=== PATIENT | female | born 1950 | race Caucasian/White ===

== ENCOUNTER 2017-04-11 06:57 | Day surgery (SDC) | payer MEDICARE, BC ==
[2017-04-11] MEDS ORDERED: LIDOCAINE 2% MDV (20MG/ML) 20ML VIAL IV ONE ×2 (13:19→15:07)
[2017-04-11] MEDS ORDERED: EPINEPHRINE 1 MG/ML AMPUL SQ ONE (13:19)
[2017-04-11] MEDS ORDERED: TETRACAINE HCL 0.5% 15 ML OPTH BTL OPTH ONE (13:19)
[2017-04-11] MEDS ORDERED: NEOMYCIN/POLY./DEXAM OPTH OINT OPTH ONE (13:19)
--- NOTE | 2017-04-11 14:59 | OP NOTE CHAMES ---
DATE OF PROCEDURE: 04/11/17 PREOPERATIVE DIAGNOSIS: Nuclear sclerotic cataract, left eye. POSTOPERATIVE DIAGNOSIS: Nuclear sclerotic cataract, left eye. OPERATION: Phacoemulsification of cataractous lens with implantation of intraocular lens. LENS IMPLANT USED: Kincaid Model PCB00 + 24.0 diopters. COMPLICATIONS: None. PROCEDURE IN DETAIL: Following a retrobulbar and facial block, the patient was prepped and draped in the usual fashion for eye surgery. A lid speculum was placed in the left eye after which a 2.4 mm tunnel wound was placed at the temporal limbus and dissected into clear cornea. A paracentesis was placed at 2 oclock hours to the left and right of the initial incision and the chamber deepened with Viscoelastic. The keratome was then used to enter the anterior chamber after which the continuous circular capsulorrhexis was accomplished without difficulty using a bent needle and a Utrata forceps. Hydrodissection and hydrodelineation of the lens was performed after which the nucleus of the lens was removed using the Phaco handpiece in the [id number] technique. The residual cortical material was irrigated and aspirated from the eye after which the bag and chamber were re-examined. The bag was re-inflated with Viscoelastic and the intraocular lens injected into the capsular bag where it centered well. The Viscoelastic was then copiously irrigated and aspirated from the eye after which the temporal tunnel wound and paracentesis were hydrated and the wounds were examined. They were noted to be watertight. The lid speculum was removed from the eye and the eye patched and shielded. The patient was transferred to the recovery room in satisfactory condition and given an appointment to be reexamined in the clinic later today or as directed by Dr. Gomez. Luisito Gomez M.D. Date & Time JOB NUMBER: [id number] MTDD
[2017-04-11] MEDS ORDERED: PROPOFOL 10 MG/ML VIAL IV ONE (15:07)
== END 2017-04-11 09:35 | disposition home or self-care (01) ==
LOC: SUR 06:57
PROVIDERS: ATTEND Ophthalmology
DX: H25.12 Age-related nuclear cataract, left eye (principal); E11.9 Type 2 diabetes mellitus without complications; Z79.4 Long term (current) use of insulin; Z79.84 Long term (current) use of oral hypoglycemic drugs; E03.9 Hypothyroidism, unspecified; Z79.01 Long term (current) use of anticoagulants; E78.00 Pure hypercholesterolemia, unspecified; Z95.1 Presence of aortocoronary bypass graft
CPT/HCPCS: J0171

== ENCOUNTER 2017-04-18 09:16 | Day surgery (SDC) | payer MEDICARE, BC ==
[2017-04-18] MEDS ORDERED: DICLOFENAC SODIUM 2.5 ML DROPS OPTH ONE (15:37)
[2017-04-18] MEDS ORDERED: EPINEPHRINE 1 MG/ML AMPUL SQ ONE (15:37)
[2017-04-18] MEDS ORDERED: TOBRAMYCIN 0.3% OPTH DROP 5 ML BTL OPTH ONE (15:37)
[2017-04-18] MEDS ORDERED: TETRACAINE HCL 0.5% 15 ML OPTH BTL OPTH ONE (15:37)
[2017-04-18] MEDS ORDERED: PROPOFOL 10 MG/ML VIAL IV ONE (15:37)
[2017-04-18] MEDS ORDERED: LIDOCAINE 1% MPF 100MG/10ML STERILE-PAK AMPULE IV ONE (15:37)
[2017-04-18] MEDS ORDERED: PREDNISOLONE ACETATE 1% OPTH 10ML BOTTLE OPTH ONE (15:37)
[2017-04-18] MEDS ORDERED: TETRACAINE HCL 0.5% OPTH 2ML SOLU OPTH ONE (15:37)
[2017-04-18] MEDS ORDERED: NEOMYCIN/POLY./DEXAM OPTH OINT OPTH ONE (15:37)
[2017-04-18] MEDS ORDERED: LIDOCAINE 2% MDV (20MG/ML) 20ML VIAL IV ONE ×2 (15:37)
--- NOTE | 2017-04-19 10:05 | OP NOTE CHAMES ---
DATE OF PROCEDURE: 04/18/17 PREOPERATIVE DIAGNOSIS: Nuclear sclerotic cataract, right eye. POSTOPERATIVE DIAGNOSIS: Nuclear sclerotic cataract, right eye. OPERATION: Phacoemulsification of cataractous lens with implantation of intraocular lens. LENS IMPLANT USED: Model PCB00 + 26.0 diopters. COMPLICATIONS: None. PROCEDURE IN DETAIL: Following a retrobulbar and facial block, the patient was prepped and draped in the usual fashion for eye surgery. A lid speculum was placed in the right eye after which a 2.4 mm tunnel wound was placed at the temporal limbus and dissected into clear cornea. A paracentesis was placed at 2 oclock hours to the left and right of the initial incision and the chamber deepened with Viscoelastic. The keratome was then used to enter the anterior chamber after which the continuous circular capsulorrhexis was accomplished without difficulty using a bent needle and a Utrata forceps. Hydrodissection and hydrodelineation of the lens was performed after which the nucleus of the lens was removed using the Phaco handpiece in the [id number] technique. The residual cortical material was irrigated and aspirated from the eye after which the bag and chamber were re-examined. The bag was re-inflated with Viscoelastic and the intraocular lens injected into the capsular bag where it centered well. The Viscoelastic was then copiously irrigated and aspirated from the eye after which the temporal tunnel wound and paracentesis were hydrated and the wounds were examined. They were noted to be watertight. The lid speculum was removed from the eye and the eye patched and shielded. The patient was transferred to the recovery room in satisfactory condition and given an appointment to be reexamined in the clinic later today or as directed by Dr. Gomez. Luisito Gomez M.D. Date & Time JOB NUMBER: [id number] MTDD
== END 2017-04-18 11:50 | disposition home or self-care (01) ==
LOC: SUR 09:16
PROVIDERS: ATTEND Ophthalmology
DX: H25.11 Age-related nuclear cataract, right eye (principal); E11.9 Type 2 diabetes mellitus without complications; Z79.4 Long term (current) use of insulin; Z79.84 Long term (current) use of oral hypoglycemic drugs; E03.9 Hypothyroidism, unspecified; E78.00 Pure hypercholesterolemia, unspecified
CPT/HCPCS: J0171; J3490

== ENCOUNTER 2017-06-21 23:03 | Emergency (ER) | payer MEDICARE, BC ==
[2017-06-21] MEDS ORDERED: 0.9 % SODIUM CHLORIDE 1,000 ML BAG IV ONE (23:08)
--- NOTE | 2017-06-21 23:16 | Emergency Department Record ---
History of Present Illness - General Stated Complaint: FALL Time Seen by Provider: 06/21/17 23:08 Source: Patient Mode of Arrival: Ambulatory Limitations: No limitations - History of Present Illness Initial Comments: 67 yo female presents after a fall. She was walking and tripped on a loose cord. She injured her right side and back, left elbow, and right foot. She is on Xarelto. She states she did hit her head but has no pain, no contusion, no swelling. Her pain is mostly on the right flank, back, and R CVA area. She landed on the ground. No LOC. She ambulated to the ED. No dizziness. No symptoms prior to the fall. No headache. MD Complaint: Fall -: Hour(s) (1) Fall From: Standing When Fall Occurred: 1 hour [employer] Fall Witnessed: No Place Fall Occurred: Home Loss of Consciousness: None Prolonged Down Time?: No Symptoms Prior to Fall: None Location: Head, Back, Abdomen, Other Location - Extremities: Left: Elbow, Right: Foot Severity: Moderate Quality: Aching Associated Symptoms: Denies - Mora Coma Scale Eye Response: (4) Open spontaneously Motor Response: (6) Obeys commands Verbal Response: (5) Oriented Mora Total: 15 - Related Data Home Medications Medication Instructions Recorded Confirmed Last Taken Levothyroxine Sodium [Synthroid] 75 mcg PO QAM 06/22/17 06/22/17 06/21/17 Allergies Allergy/AdvReac Type Severity Reaction Status Date / Time cortisone [Cortisone] Allergy SWELLING Verified 06/17/14 22:28 (GENERAL) Penicillins Allergy SHORTNESS Verified 06/17/14 22:28 OF BREATH Review of Systems Constitutional: Denies: Chills, Fever, Malaise, Weakness Eyes: Denies: Eye discharge ENT: Denies: Congestion, Throat pain Respiratory: Denies: Cough, Dyspnea, Hemoptysis, Stridor, Wheezes Cardiovascular: Reports: As per HPI, Chest pain. Denies: Palpitations, Syncope Endocrine: Denies: Fatigue Gastrointestinal: Reports: As per HPI, Abdominal pain. Denies: Diarrhea, Nausea , Vomiting Genitourinary: Denies: Dysuria, Urgency Musculoskeletal: Reports: As per HPI, Back pain, Myalgia. Denies: Neck pain Skin: Denies: Bruising, Change in color, Rash Neurological: Denies: Abnormal gait, Confusion, Headache, Numbness, Tingling, Tremors, Vertigo, Weakness Psychiatric: Denies: Anxiety Hematological/Lymphatic: Denies: Blood Clots, Easy bleeding, Easy bruising, Swollen glands Past Medical History - SOCIAL HISTORY Smoking Status: Never smoker - RESPIRATORY Hx Respiratory Disorders: Yes Hx Bronchitis: Yes Hx Pneumonia: Yes Hx Sleep Apnea: Yes Hx of CPAP: No (cannot use it; claustrophobic) - CARDIOVASCULAR Hx Cardio Disorders: Yes Hx Abnormal EKG: Yes Hx Cardiac Cath: Yes Hx Chest Pain: Yes Hx CHF: Yes (? uses diuretic) Hx Edema: Yes Hx Hypertension: Yes Hx Irregular Heartbeat: Yes (afib) Hx Coronary Artery Bypass Graft: Yes Hx Coronary Stent: Yes (3) Comment:: cardia stents; bypass; high cholesterol - NEURO Hx Neuro Disorders: No Hx Dizziness: Yes (while laying down) - GI Hx GI Disorders: Yes Hx Diverticulitis: Yes Hx Reflux: Yes Hx Irritable Bowel: Yes - Hx Genitourinary Disorders: Yes Hx Renal Disease: Yes (sees dr for kidneys;) - ENDOCRINE Hx Endocrine Disorders: Yes Hx Diabetes: Yes - MUSCULOSKELETAL Hx Musculoskeletal Disorders: Yes Hx Arthritis: Yes Hx Fibromyalgia: Yes - PSYCH Hx Psych Problems: Yes Hx Anxiety: Yes Hx Depression: Yes - HEMATOLOGY/ONCOLOGY Hx Hematology/Oncology Disorders: Yes Hx Bruising: Yes (on blood thinnner) Hx Cancer: Yes (skin cancer) Hx Chemotherapy: No Hx Radiation Therapy: No Family Medical History Hx Cancer: Father Hx Diabetes: Mother Hx Heart Disease: Father, Mother Hx HTN: Father, Mother Hx Resp Disorders: Father Hx Stroke: Mother Physical Exam - General General Appearance: Alert, Oriented x3, Cooperative, No acute distress Limitations: No limitations - Head Head exam: Atraumatic, Normocephalic, Normal inspection Head exam detail: Other (No tenderness to palpation, no visible signs of injury , no abrasions). negative: Abrasion, Contusion, General tenderness, Hematoma, Tenderness of temporal artery - Eye Eye exam: Normal appearance, PERRL, EOMI. negative: Conjunctival injection, Periorbital swelling, Scleral icterus - ENT ENT exam: Normal exam. negative: Mucous membranes moist Ear exam: Normal external inspection Nasal Exam: Normal inspection Mouth exam: Normal external inspection - Neck Neck exam: Normal inspection, Full ROM. negative: Tenderness - Respiratory Respiratory exam: Normal lung sounds bilaterally. negative: Respiratory distress - Cardiovascular Cardiovascular Exam: Regular rate, Normal rhythm, Normal heart sounds Peripheral Pulses: 2+: Radial (R), Radial (L) - GI/Abdominal GI/Abdominal exam: Soft, Tenderness (right lateral abdomen) - Rectal Rectal exam: Deferred - exam: Deferred - Extremities Extremities exam: Normal inspection, Full ROM, Normal capillary refill, Tenderness. negative: Joint swelling Image of Full Body: 1 - tenderness to the elbow, no bruising, full ROM 2 - tenderness to the right posterior ribs and right CVA area 3 - mid weigh box tender, normal inspection, no swelling or bruising - Back Back exam: Reports: CVA tenderness (R), Muscle spasm, Paraspinal tenderness, Tenderness, Vertebral tenderness - Neurological Neurological exam: Alert, Normal gait, Oriented X3 - Psychiatric Psychiatric exam: Normal affect, Normal mood - Skin Skin exam: Dry, Intact, Normal color, Warm Course - Reevaluation(s) Reevaluation #1: 06/21/17 23:44 CBC reviewed No acute changes CR is 1.3 with GFR of 43. Cut off is 45 for IV contrast for [facility] CT will be NC initially. Reevaluation #2: Prelim XR of the foot and elbow are negative for acute fracture or dislocation. 06/22/17 00:22 [facility] HCT is negative for acute process 06/22/17 00:[address] [facility] No fracture or dislocation 06/22/17 00:[address] scan No acute fractures. Bilateral patchy ground glass changes. L greater than R. Chronic changes, vs acute infectious, vs contusion. [facility] CT of the ABDOMEN No acute injury or pathology 06/22/17 00:39 Reevaluation #3: The patient is 97% on room air. 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 with some chronic underlying lung disease that may be what is represented on the CT She does not have any current respiratory symptoms She is comfortable with DC 06/22/17 01:14 Medical Decision Making - Lab Data Result diagrams: 06/21/17 23:15 06/21/17 23:15 Disposition Disposition: Discharge Clinical Impression: Contusion of elbow, left Qualifiers: Encounter type: initial encounter Qualified Code(s): S50.02XA - Contusion of left elbow, initial encounter Contusion of foot, right Qualifiers: Encounter type: initial encounter Qualified Code(s): S90.31XA - Contusion of right foot, initial encounter Contusion of rib on left side Qualifiers: Encounter type: initial encounter Qualified Code(s): S20.212A - Contusion of left front wall of thorax, initial encounter Condition: (1) Good Instructions: Rib Contusion (ED) Additional Instructions: Return to the ER if you have any uncontrolled pain, cough, short of breath, new pain or new concerns. Follow up with your doctor first of the week for a recheck and to review all of your final reports Time of Disposition: 01:16 Quality - Quality Measures Quality Measures: N/A - Blood Pressure Screening Does Patient Have Any of the Following: No Blood Pressure Classification: Pre-Hypertensive BP Reading Systolic Measurement: 164 Diastolic Measurement: 86 Screening for High Blood Pressure: < Pre-Hypertensive BP, F/U Documented > [ G8950] Pre-Hypertensive Follow-up Interventions: Referral to alternative/primary care provider.
[2017-06-21] MEDS ORDERED: ACETAMINOPHEN 1,000 MG/100 ML BTL IVPB ONE (23:22)
[2017-06-21] MEDS ORDERED: FENTANYL PF 100MCG/2ML VIAL IVP ONE (23:22)
[2017-06-21 23:27] LABS: BASO % 0.5 % (0-6); EOS % 4.7 % (0-6); GRAN % 58.4 % (47-80); HEMATOCRIT 40.2 % (35.0-47.0); HEMOGLOBIN 13.5 gm/dl (11.6-16.0); LYMPH % 27.9 % (16-45); MEAN CELL VOLUME 82.4 fl (81-97); MEAN CORPUSCULAR HEMOGLOBIN 27.7 pg (27-33); MEAN CORPUSCULAR HGB CONC 33.6 g/dl (32-36); MEAN PLATELET VOLUME 10.6 fl (7.4-10.4); MONO % 8.5 % (0-9); PLATELET COUNT 276 K/uL (130-400); RED BLOOD COUNT 4.88 M/uL (3.80-5.40); RED CELL DISTRIBUTION WIDTH 13.1 % (11.5-14.5); WHITE BLOOD COUNT W/O DIFF 10.4 K/uL (4.2-12.2)
[2017-06-21 23:35] LABS: CREATININE 1.3 mg/dL (0.52-1.04)
[2017-06-21 23:37] LABS: PARTIAL THROMBOPLASTIN TIME 25.2 SECONDS (24.5-39.1); PROTHROMBIN TIME (PATIENT) 10.8 SECONDS (9.5-12.1)
[2017-06-21 23:42] LABS: ALCOHOL 0.01 g/dL (0-0.010)
--- NOTE | 2017-06-22 22:18 | RADIOLOGY REPORT ---
EXAM: ELBOW, LEFT 3 VIEWS HISTORY: FALL, LEFT ELBOW INJURY AND PAIN. TECHNIQUE: Three-view left elbow. COMPARISON: None. ENCOUNTER: Initial. FINDINGS: No acute fracture or joint effusion. Mild arthritic change of the ulnotrochlear joint with small osteophytes. Mild enthesophyte formation medial epicondyle. IMPRESSION: NEGATIVE FOR ACUTE FRACTURE OR JOINT EFFUSION OF THE LEFT ELBOW. JOB [facility]BER: [id number] [facility]
--- NOTE | 2017-06-22 22:25 | CT SCAN REPORT ---
EXAM: CT SCAN CHEST WO CONTRAST HISTORY: ACUTE RIGHT CHEST PAIN, FALL, INJURY. COMPARISON: Chest x-ray 06/14/96. ENCOUNTER: Initial. TECHNIQUE: Contiguous axial images from the thoracic inlet to the upper abdomen were obtained without IV contrast. FINDINGS: Mild patchy ground-glass density in the peripheral, left greater than right, lower lobe as well as minimally within the lingula. No pneumothorax. No pleural effusion. Central airways are patent. The heart is not enlarged and there is no pericardial effusion. Moderate coronary artery calcification. Calcified mediastinal lymph nodes. No enlarged lymph nodes in the thorax. Upper abdomen is unremarkable. No fractures identified. IMPRESSION: 1. NO ACUTE INTRATHORACIC PROCESS. 2. GROUND-GLASS DENSITIES IN THE LEFT LOWER LOBE GREATER THAN RIGHT LOWER LOBE CONSISTENT WITH NONSPECIFIC PNEUMONITIS. 3. OLD GRANULOMATOUS DISEASE. JOB NUMBER: [id number] MTDD
--- NOTE | 2017-06-23 20:41 | RADIOLOGY REPORT ---
EXAM: FOOT, RIGHT 3 VIEWS HISTORY: FALL, RIGHT FOOT INJURY, PAIN RIGHT SECOND DIGIT. TECHNIQUE: Three-view right foot. COMPARISON: None. ENCOUNTER: Initial. FINDINGS: No acute fracture or dislocation. Mild osteoarthritic change of the first MTP. No hallux valgus. Extensive right calcaneal enthesopathy. IMPRESSION: 1. NEGATIVE FOR ACUTE FRACTURE OF THE RIGHT FOOT. 2. MILD OSTEOARTHRITIC CHANGE OF THE RIGHT FIRST MTP. 3. EXTENSIVE RIGHT CALCANEAL ENTHESOPATHY. JOB NUMBER: [id number] [facility]
--- NOTE | 2017-06-23 20:46 | CT SCAN REPORT ---
EXAM: CT SCAN HEAD WO CONTRAST HISTORY: ACUTE GENERALIZED HEADACHE, FALL. NO LOSS OF CONSCIOUSNESS. COMPARISON: None. ENCOUNTER: Initial. HAND DOMINANCE: Unknown. TECHNIQUE: Contiguous axial images from the cerebral convexities to the foramen magnum were obtained without contrast. FINDINGS: Moderate generalized atrophy of the brain. No acute intracranial hemorrhage, mass effect, or midline shift. Moderate decreased attenuation in the subcortical and periventricular white matter of the cerebral hemispheres. No CT evidence of acute infarct. Ventricles, basal cisterns, and sulci are within normal limits. Osseous structures are unremarkable. Bilateral lens implants. Paranasal sinuses are unremarkable. IMPRESSION: 1. NO ACUTE INTRACRANIAL PROCESS. 2. MODERATE GENERALIZED ATROPHY OF THE BRAIN WITH MODERATE CHRONIC SMALL VESSEL ISCHEMIC CHANGE. JOB NUMBER: [id number] MTDD
--- NOTE | 2017-06-23 20:56 | CT SCAN REPORT ---
EXAM: CT SCAN CERVICAL SPINE WO CONTRAST HISTORY: FALL, TRAUMA, NECK PAIN. COMPARISON: None. TECHNIQUE: Contiguous axial images from the skull base to the T-2 level were obtained without contrast. Sagittal and coronal two-dimensional reformatted images were obtained for better anatomic delineation. FINDINGS: Moderate reversal of normal cervical lordosis. The C1-C2 articulation is intact. Extensive hypertrophic change between the anterior arch of C1 and the odontoid. No acute fracture or subluxation elsewhere. Moderate to advanced disc disease at the C6-7 level with disc space narrowing and endplate osteophytes. Mild disc disease of remaining levels. Probable mild central canal stenosis due to degenerative change at C6-7. Facet arthropathy in the cervical spine, most pronounced at C4-5 on the left, where there is moderate to severe left neural foraminal stenosis. Soft tissues of the cervical region demonstrate moderate calcification of the carotid bulbs. The lung apices are clear. IMPRESSION: 1. MULTILEVEL DEGENERATIVE CHANGE OF THE CERVICAL SPINE WITH NO ACUTE FRACTURE OR SUBLUXATION. 2. MULTILEVEL DEGENERATIVE DISC DISEASE, MOST PRONOUNCED AT C6-7. 3. FACET ARTHROPATHY, MOST PRONOUNCED AT C4-5 ON THE LEFT WITH MODERATE TO SEVERE LEFT NEURAL FORAMINAL STENOSIS AT THIS LEVEL. JOB NUMBER: [id number] MTDD
--- NOTE | 2017-06-23 21:02 | CT SCAN REPORT ---
EXAM: CT SCAN ABDOMEN/PELVIS WO CONTRAST HISTORY: FALL, LUMBAR TRAUMA, BACK PAIN. COMPARISON: None. TECHNIQUE: Contiguous axial images from the lung bases through the symphysis pubis were obtained without IV contrast. FINDINGS: Mild bibasilar ground-glass opacity. The liver, spleen, kidneys, adrenals, and pancreas are unremarkable. The gallbladder is absent. Visualized loops of small and large bowel are of normal caliber with no bowel wall thickening or adjacent fluid. There is minimal calcification of the abdominal aorta without aneurysm. No free intraperitoneal fluid or adenopathy. Midline incisional scar. The uterus is absent. Increased attenuation subcutaneous fat of the lower lumbar region. No fractures. No lytic or blastic lesion. IMPRESSION: 1. NO ACUTE PROCESS OF THE ABDOMEN OR PELVIS. 2. INCREASED ATTENUATION SUBCUTANEOUS FAT OF THE LOWER LUMBAR REGION CONSISTENT WITH CONTUSION. NO FRACTURE. JOB NUMBER: [id number] MTDD
== END 2017-06-22 01:34 | disposition home or self-care (01) ==
LOC: ER 23:03
DX: S50.02XA Contusion of left elbow, initial encounter (principal); S90.31XA Contusion of right foot, initial encounter; S20.212A Contusion of left front wall of thorax, initial encounter; M54.2 Cervicalgia; R51 Headache; I48.91 Unspecified atrial fibrillation; E11.9 Type 2 diabetes mellitus without complications; I10 Essential (primary) hypertension; Z79.01 Long term (current) use of anticoagulants; W01.0XXA Fall on same level from slipping, tripping and stumbling without subsequent striking against object, initial encounter; Y92.009 Unspecified place in unspecified non-institutional (private) residence as the place of occurrence of the external cause
CPT/HCPCS: 99284 ×2; 96374; 96375; 85025; 85730; 85610; 80048; 73080; 73630; 72125; 71250; 70450; 74176; G0480; J3010; 80320; J7030

== ENCOUNTER 2017-09-20 11:07 | Emergency (ER) | payer MEDICARE, BC ==
--- NOTE | 2017-09-20 11:32 | Emergency Department Record ---
History of Present Illness - General Chief Complaint: Suture removal Stated Complaint: SUTURE REMOVAL Time Seen by Provider: 09/20/17 11:28 Source: Patient Mode of arrival: Ambulatory Limitations: No limitations - History of Present Illness Initial Comments: 67 yo female presents for suture removal. She has a left eyebrow laceration that has been healing without any concerns by the patient. The bruising and swelling are resolving. NO vision changes. No redness or pus. MD Complaint: Suture/staple removal, Wound re-check Onset/Timin -: Days(s) Initial Visit For: Laceration Returns Today for: Staple/stitch removal Symptoms Since Prior Visit: No new symptoms Associated Symptoms: None - Related Data Allergies Allergy/AdvReac Type Severity Reaction Status Date / Time cortisone [Cortisone] Allergy SWELLING Verified 09/20/17 11:15 (GENERAL) Penicillins Allergy SHORTNESS Verified 09/20/17 11:15 OF BREATH Travel Screening - Travel/Exposure Within Last 30 Days Have you traveled within the last 30 days?: No Review of Systems Constitutional: Denies: Chills, Fever Eyes: Denies: Eye discharge, Eye pain, Photophobia, Vision change ENT: Denies: Congestion, Throat pain Respiratory: Denies: Cough Cardiovascular: Denies: Chest pain, Syncope Endocrine: Denies: Fatigue Gastrointestinal: Denies: Nausea, Vomiting Genitourinary: Denies: Dysuria Musculoskeletal: Denies: Arthralgia, Back pain, Myalgia Neurological: Denies: Headache, Numbness, Vertigo, Weakness Psychiatric: Denies: Anxiety Hematological/Lymphatic: Denies: Blood Clots, Easy bleeding, Easy bruising Past Medical History - SOCIAL HISTORY Smoking Status: Never smoker Alcohol Use: None Drug Use: None - RESPIRATORY Hx Respiratory Disorders: Yes Hx Bronchitis: Yes Hx Pneumonia: Yes Hx Sleep Apnea: Yes Hx of CPAP: No (cannot use it; claustrophobic) - CARDIOVASCULAR Hx Cardio Disorders: Yes Hx Abnormal EKG: Yes Hx Cardiac Cath: Yes Hx Chest Pain: Yes Hx CHF: Yes (? uses diuretic) Hx Edema: Yes Hx Hypertension: Yes Hx Irregular Heartbeat: Yes (afib) Hx Coronary Artery Bypass Graft: Yes Hx Coronary Stent: Yes (3) Comment:: cardia stents; bypass; high cholesterol - NEURO Hx Neuro Disorders: No Hx Dizziness: Yes (while laying down) - GI Hx GI Disorders: Yes Hx Diverticulitis: Yes Hx Reflux: Yes Hx Irritable Bowel: Yes - Hx Genitourinary Disorders: Yes Hx Renal Disease: Yes (sees dr for kidneys;) - ENDOCRINE Hx Endocrine Disorders: Yes Hx Diabetes: Yes - MUSCULOSKELETAL Hx Musculoskeletal Disorders: Yes Hx Arthritis: Yes Hx Fibromyalgia: Yes - PSYCH Hx Psych Problems: Yes Hx Anxiety: Yes Hx Depression: Yes - HEMATOLOGY/ONCOLOGY Hx Hematology/Oncology Disorders: Yes Hx Bruising: Yes (on blood thinnner) Hx Cancer: Yes (skin cancer) Hx Chemotherapy: No Hx Radiation Therapy: No Family Medical History Any Significant Family History?: Yes Hx Cancer: Father Hx Diabetes: Mother Hx Heart Disease: Father, Mother Hx HTN: Father, Mother Hx Resp Disorders: Father Hx Stroke: Mother Physical Exam - General General Appearance: Alert, Oriented x3, Cooperative, No acute distress Limitations: No limitations - Head Head exam: negative: Atraumatic Head exam detail: Laceration (Healing eyebrow laceration, mild scabbing, intact wound) - Eye Eye exam: Normal appearance - ENT ENT exam: Normal exam Ear exam: Normal external inspection Nasal Exam: Normal inspection Mouth exam: Normal external inspection Teeth exam: Normal inspection - Neck Neck exam: Normal inspection, Full ROM. negative: Tenderness - Rectal Rectal exam: Deferred - exam: Deferred - Extremities Extremities exam: Other (left hand abrasion) - Back Back exam: Reports: Full ROM - Neurological Neurological exam: Alert, Oriented X3 - Psychiatric Psychiatric exam: Normal affect, Normal mood - Skin Skin exam: Other (healing laceration) Course Vital Signs 09/20/17 11:16 Temperature 98.4 F Pulse Rate 52 L Respiratory 18 Rate Blood Pressure 150/68 Pulse Ox 98 - Reevaluation(s) Reevaluation #1: 09/20/17 11:30 Sutures removed without difficulty Steri Strips placed 09/20/17 11:31 The HCT from initial visit was negative Disposition Disposition: Discharge Clinical Impression: Visit for suture removal Disposition: Home, Self-Care Condition: (1) Good Instructions: Stitches Removal (ED) Additional Instructions: Return to the ER if you have any ongoing concerns about the healing of your laceration Forms: Patient Portal Access Time of Disposition: 11:32 Quality - Quality Measures Quality Measures: N/A - Blood Pressure Screening Does Patient Have Any of the Following: No Blood Pressure Classification: Hypertensive Reading Systolic Measurement: 150 Diastolic Measurement: 68 Screening for High Blood Pressure: < Pre-Hypertensive BP, F/U Documented > [ G8950] Pre-Hypertensive Follow-up Interventions: Referral to alternative/primary care provider.
== END 2017-09-20 11:40 | disposition home or self-care (01) ==
LOC: ER 11:07
DX: Z48.02 Encounter for removal of sutures (principal)

== ENCOUNTER 2018-01-12 14:35 | Emergency (ER) | payer MEDICARE, BC ==
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
--- NOTE | 2018-01-12 15:39 | Emergency Department Record ---
History of Present Illness - General Chief complaint: Extremity Problem Stated complaint: RT ELBOW AND SHOULDER PAIN Time Seen by Provider: 01/12/18 15:22 Source: Patient Mode of Arrival: Ambulatory - History of Present Illness Onset/Timin -: Week(s) Location: Right, Arm, Elbow History of Same: No Severity scale (1-10): 9 Quality: Aching, Sharp Consistency: Constant Improves with: Nothing Worsens with: Exertion Associated Symptoms: Denies other symptoms - Related Data Home Medications Medication Instructions Recorded Confirmed Last Taken Baclofen [Baclofen] 10 mg PO QHS 01/12/18 01/12/18 01/12/18 Previous Rx's Medication Instructions Recorded Prednisone [Prednisone 10Mg] 10 mg PO ASDIR #30 tab 01/12/18 Prednisone [Prednisone 10Mg] 10 mg PO ASDIR #30 tab 01/12/18 Allergies Allergy/AdvReac Type Severity Reaction Status Date / Time cortisone [Cortisone] Allergy SWELLING Verified 01/12/18 14:47 (GENERAL) Penicillins Allergy SHORTNESS Verified 01/12/18 14:47 OF BREATH Travel Screening - Travel/Exposure Within Last 30 Days Have you traveled within the last 30 days?: No - Travel/Exposure Within Last Year Have you traveled outside the [place] in the last year?: No - Additonal Travel Details Have you been exposed to anyone with a communicable illness?: No - Travel Symptoms Symptom Screening: None Review of Systems Constitutional: Reports: As per HPI. Denies: Chills, Fever, Malaise, Night sweats, Weakness, Weight change Eyes: Reports: As per HPI. Denies: Eye discharge, Eye pain, Photophobia, Vision change ENT: Reports: As per HPI. Denies: Congestion, Dental pain, Ear pain, Epistaxis , Hearing loss, Throat pain Respiratory: Reports: As per HPI. Denies: Cough, Dyspnea, Hemoptysis, Stridor, Wheezes Cardiovascular: Reports: As per HPI. Denies: Arrhythmia, Chest pain, Dyspnea on exertion, Edema, Murmurs, Orthopnea, Palpitations, Paroxysmal nocturnal dyspnea, Rheumatic Fever, Syncope Endocrine: Reports: As per HPI. Denies: Fatigue, Heat or cold intolerance, Polydipsia, Polyuria Gastrointestinal: Reports: As per HPI. Denies: Abdominal pain, Constipation, Diarrhea, Hematemesis, Hematochezia, Melena, Nausea, Vomiting Genitourinary: Reports: As per HPI. Denies: Abnormal menses, Discharge, Dyspareunia, Dysuria, Frequency, Hematuria, Incontinence, Retention, Urgency Musculoskeletal: Reports: As per HPI. Denies: Arthralgia, Back pain, Gout, Joint swelling, Myalgia, Neck pain Skin: Reports: As per HPI. Denies: Bruising, Change in color, Change in hair/ nails, Lesions, Pruritus, Rash Neurological: Reports: As per HPI. Denies: Abnormal gait, Confusion, Headache, Numbness, Paresthesias, Seizure, Tingling, Tremors, Vertigo, Weakness Psychiatric: Reports: As per HPI. Denies: Anxiety, Auditory hallucinations, Depression, Homicidal thoughts, Suicidal thoughts, Visual hallucinations Hematological/Lymphatic: Reports: As per HPI. Denies: Anemia, Blood Clots, Easy bleeding, Easy bruising, Swollen glands Past Medical History - SOCIAL HISTORY Smoking Status: Never smoker Alcohol Use: None Drug Use: None - RESPIRATORY Hx Respiratory Disorders: Yes Hx Bronchitis: Yes Hx Pneumonia: Yes Hx Sleep Apnea: Yes Hx of CPAP: No (cannot use it; claustrophobic) - CARDIOVASCULAR Hx Cardio Disorders: Yes Hx Abnormal EKG: Yes Hx Cardiac Cath: Yes Hx Chest Pain: Yes Hx CHF: Yes (? uses diuretic) Hx Edema: Yes Hx Hypertension: Yes Hx Irregular Heartbeat: Yes (afib) Hx Coronary Artery Bypass Graft: Yes Hx Coronary Stent: Yes (3) Comment:: cardia stents; bypass; high cholesterol - NEURO Hx Neuro Disorders: No Hx Dizziness: Yes (while laying down) - GI Hx GI Disorders: Yes Hx Diverticulitis: Yes Hx Reflux: Yes Hx Irritable Bowel: Yes - Hx Genitourinary Disorders: Yes Hx Renal Disease: Yes (sees for kidneys;) - ENDOCRINE Hx Endocrine Disorders: Yes Hx Diabetes: Yes - MUSCULOSKELETAL Hx Musculoskeletal Disorders: Yes Hx Arthritis: Yes Hx Fibromyalgia: Yes - PSYCH Hx Psych Problems: Yes Hx Anxiety: Yes Hx Depression: Yes - HEMATOLOGY/ONCOLOGY Hx Hematology/Oncology Disorders: Yes Hx Bruising: Yes (on blood thinnner) Hx Cancer: Yes (skin cancer) Hx Chemotherapy: No Hx Radiation Therapy: No Family Medical History Any Significant Family History?: Yes Hx Cancer: Father Hx Diabetes: Mother Hx Heart Disease: Father, Mother Hx HTN: Father, Mother Hx Resp Disorders: Father Hx Stroke: Mother Course Vital Signs 01/12/18 14:51 Temperature 98.4 F Pulse Rate 55 L Respiratory 20 Rate Blood Pressure 135/81 Pulse Ox 99 Disposition Clinical Impression: Epicondylitis, lateral Qualifiers: Laterality: right Qualified Code(s): M77.11 - Lateral epicondylitis, right elbow Disposition: Home, Self-Care Condition: (1) Good Instructions: Tennis Elbow (ED) Additional Instructions: obtain an epicondylitis velcro band at the drug store and wear. Prescriptions: Prednisone [Prednisone 10Mg] 10 mg PO ASDIR #30 tab Prednisone [Prednisone 10Mg] 10 mg PO ASDIR #30 tab Forms: Patient Portal Access Time of Disposition: 15:38 Quality - Quality Measures Quality Measures: N/A - Blood Pressure Screening Does Patient Have Any of the Following: No Blood Pressure Classification: Pre-Hypertensive BP Reading Systolic Measurement: 135 Diastolic Measurement: 81 Screening for High Blood Pressure: < Pre-Hypertensive BP, F/U Documented > [ G8950] Pre-Hypertensive Follow-up Interventions: Referral to alternative/primary care provider.
== END 2018-01-12 15:45 | disposition home or self-care (01) ==
LOC: ER 14:35
DX: M77.11 Lateral epicondylitis, right elbow (principal); I10 Essential (primary) hypertension
CPT/HCPCS: 99282

== ENCOUNTER 2018-06-12 17:49 | Emergency (ER) | payer MEDICARE, BC ==
[2018-06-12] MEDS ORDERED: MORPHINE SULFATE 10 MG/ML VIAL IVP ONE (18:07)
[2018-06-12] MEDS ORDERED: ONDANSETRON HCL IV 4 MG/2 ML VIAL IVP ONE (18:07)
--- NOTE | 2018-06-12 18:12 | Emergency Department Record ---
History of Present Illness - General Chief Complaint: Abdominal Pain Stated Complaint: AVD PAIN Time Seen by Provider: 06/12/18 17:52 Source: Patient Mode of Arrival: Wheelchair Limitations: No limitations - History of Present Illness Initial Comments: 68 yo female presents to ED for evaluation of right sided abdominal pain symptoms that began 4-5 days ago after a coughing fit. Patient reports that she was seen and diagnosed with Bronchitis at an Urgent Care, started on Doxycycline at that time. Patient reports history of cholecystectomy and appendectomy previously, denies any loose stools, blood in the stools. Patient does report taking Xarelto for atrial fibrillation as well. MD Complaint: Abdominal pain Onset/Timin -: Days(s) Location: RUQ, RLQ Radiation: Back Severity: Moderate Quality: Sharp, Stabbing Consistency: Intermittent Improves With: Rest Worsens With: Movement, Other (Coughing) Context: Other Associated Symptoms: Nausea - Related Data Patient : No Previous Rx's Medication Instructions Recorded Tramadol HCl 50 mg PO Q8H PRN #10 tab 06/12/18 Allergies Allergy/AdvReac Type Severity Reaction Status Date / Time cortisone [Cortisone] Allergy SWELLING Verified 06/12/18 18:00 (GENERAL) morphine Allergy ITCHING Verified 06/12/18 18:45 Penicillins Allergy SHORTNESS Verified 06/12/18 18:00 OF BREATH Travel Screening - Travel/Exposure Within Last 30 Days Have you traveled within the last 30 days?: No - Travel/Exposure Within Last Year Have you traveled outside the [place] in the last year?: No - Additonal Travel Details Have you been exposed to anyone with a communicable illness?: No - Travel Symptoms Symptom Screening: None Review of Systems Constitutional: Reports: Fever, Malaise. Denies: Chills, Night sweats, Weakness Eyes: Denies: Eye discharge, Eye pain ENT: Reports: Congestion. Denies: Ear pain, Epistaxis Respiratory: Reports: Cough. Denies: Dyspnea Cardiovascular: Denies: Chest pain, Dyspnea on exertion, Edema, Palpitations Endocrine: Denies: Fatigue, Heat or cold intolerance Gastrointestinal: Reports: Abdominal pain. Denies: Nausea, Vomiting Genitourinary: Denies: Incontinence, Retention Musculoskeletal: Denies: Arthralgia, Back pain, Gout, Joint swelling Skin: Denies: Bruising, Change in color Neurological: Denies: Abnormal gait, Confusion, Headache, Seizure Psychiatric: Denies: Anxiety Hematological/Lymphatic: Reports: Easy bleeding, Easy bruising. Denies: Anemia , Blood Clots Past Medical History - SOCIAL HISTORY Smoking Status: Never smoker Alcohol Use: None Drug Use: None - RESPIRATORY Hx Respiratory Disorders: Yes Hx Bronchitis: Yes Hx Pneumonia: Yes Hx Sleep Apnea: Yes Hx of CPAP: No (cannot use it; claustrophobic) - CARDIOVASCULAR Hx Cardio Disorders: Yes Hx Abnormal EKG: Yes Hx Cardiac Cath: Yes Hx Chest Pain: Yes Hx CHF: Yes (? uses diuretic) Hx Edema: Yes Hx Hypertension: Yes Hx Irregular Heartbeat: Yes (afib) Hx Coronary Artery Bypass Graft: Yes Hx Coronary Stent: Yes (3) Comment:: cardia stents; bypass; high cholesterol - NEURO Hx Neuro Disorders: No Hx Dizziness: Yes (while laying down) - GI Hx GI Disorders: Yes Hx Diverticulitis: Yes Hx Reflux: Yes Hx Irritable Bowel: Yes - Hx Genitourinary Disorders: Yes Hx Renal Disease: Yes (sees dr for kidneys;) - ENDOCRINE Hx Endocrine Disorders: Yes Hx Diabetes: Yes Hx Thyroid Disease: Yes - MUSCULOSKELETAL Hx Musculoskeletal Disorders: Yes Hx Arthritis: Yes Hx Fibromyalgia: Yes - PSYCH Hx Psych Problems: Yes Hx Anxiety: Yes Hx Depression: Yes - HEMATOLOGY/ONCOLOGY Hx Hematology/Oncology Disorders: Yes Hx Bruising: Yes (on blood thinnner) Hx Cancer: Yes (skin cancer) Hx Chemotherapy: No Hx Radiation Therapy: No Family Medical History Any Significant Family History?: No Hx Cancer: Father Hx Diabetes: Mother Hx Heart Disease: Father, Mother Hx HTN: Father, Mother Hx Resp Disorders: Father Hx Stroke: Mother Physical Exam - General General Appearance: Alert, Oriented x3, Cooperative, Moderate distress Limitations: No limitations - Head Head exam: Atraumatic, Normocephalic, Normal inspection Head exam detail: negative: Abrasion, Contusion, Dennis's sign, General tenderness, Hematoma, Laceration - Eye Eye exam: Normal appearance. negative: Conjunctival injection, Periorbital swelling, Periorbital tenderness, Scleral icterus - ENT Ear exam: negative: Auricular hematoma, Auricular trauma Nasal Exam: negative: Active bleeding, Discharge, Dried blood, Foreign body Mouth exam: negative: Drooling, Laceration, Muffled voice, Tongue elevation - Neck Neck exam: Normal inspection. negative: Meningismus, Tenderness - Respiratory Respiratory exam: Decreased breath sounds. negative: Rales, Respiratory distress, Rhonchi - Cardiovascular Cardiovascular Exam: Regular rate, Normal rhythm, Normal heart sounds - GI/Abdominal GI/Abdominal exam: Soft, Tenderness (TTP to the right mid-abdomen and RLQ on examination, no rebound or guarding present.). negative: Rebound, Rigid - Rectal Rectal exam: Deferred - exam: Deferred - Extremities Extremities exam: Normal inspection. negative: Calf tenderness, Tenderness - Back Back exam: Denies: CVA tenderness (R), CVA tenderness (L) - Neurological Neurological exam: Alert, Normal gait, Oriented X3 - Psychiatric Psychiatric exam: Normal affect, Normal mood - Skin Skin exam: Normal color. negative: Abrasion Type of lesion: negative: abrasion Course Vital Signs 06/12/18 17:51 Temperature 98.4 F Pulse Rate 94 H Respiratory 18 Rate Blood Pressure 174/98 Pulse Ox 98 - Reevaluation(s) Reevaluation #1: 06/12/18 18:49 Laboratory studies were reviewed: CL 93 CO2 30 BUN 26/Creatinine 1.5 (GFR 37 which appears to be at the patient's baseline). Glucose 235. Patient is back from CT imaging, has received Fentanyl, and appears to be resting comfortably. Reevaluation #2: 06/12/18 18:55 CT Abdomen and Pelvis: 7.7 x 2.6 cm right rectus sheath hematoma Patient was updated on all results and reports improvement in her pain symptoms following Fentanyl. Will prescribe additional Tramadol as the patient takes this for her chronic back pain symptoms and is almost out of her home medications. Patient is in agreement with the plan of care as discussed and appears stable for discharge at this time. Reevaluation #3: 06/12/18 19:03 UA is negative for blood or infection. Patient appears stable for discharge a this time. Medical Decision Making - Lab Data Result diagrams: 06/12/18 18:17 06/12/18 18:17 Disposition Disposition: Discharge Clinical Impression: Rectus sheath hematoma Qualifiers: Encounter type: initial encounter Qualified Code(s): S30.1XXA - Contusion of abdominal wall, initial encounter Disposition: Home, Self-Care Condition: (2) Stable Instructions: Hematoma (ED) Additional Instructions: Return to ED if your symptoms worsen or if you have any concerns. Tramadol as directed. Follow-up with your family doctor in 3-5 days as directed. Prescriptions: Tramadol HCl 50 mg PO Q8H PRN #10 tab PRN Reason: Pain - Moderate (5-7) Forms: Patient Portal Access Time of Disposition: 18:58 Quality - Quality Measures Quality Measures: N/A - Blood Pressure Screening Does Patient Have Any of the Following: Active Dx of HTN Blood Pressure Classification: Hypertensive Reading Systolic Measurement: 174 Diastolic Measurement: 98 Screening for High Blood Pressure: Patient Exclusion, Hx of HTN [G9744]
[2018-06-12] MEDS ORDERED: 0.9 % SODIUM CHLORIDE 1000ML 250 ML IV SCH (18:15)
[2018-06-12 18:25] LABS: BASO % 0.3 % (0-6); EOS % 2.4 % (0-6); GRAN % 66.9 % (47-80); HEMATOCRIT 41.2 % (35.0-47.0); HEMOGLOBIN 13.3 gm/dl (11.6-16.0); LYMPH % 23.1 % (16-45); MEAN CELL VOLUME 81.7 fl (81-97); MEAN CORPUSCULAR HEMOGLOBIN 26.4 pg (27-33); MEAN CORPUSCULAR HGB CONC 32.3 g/dl (32-36); MEAN PLATELET VOLUME 9.9 fl (7.4-10.4); MONO % 7.3 % (0-9); PLATELET COUNT 292 K/uL (130-400); RED BLOOD COUNT 5.04 M/uL (3.80-5.40); RED CELL DISTRIBUTION WIDTH 13.9 % (11.5-14.5); WHITE BLOOD COUNT W/O DIFF 10.7 K/uL (4.2-12.2)
[2018-06-12 18:35] LABS: CREATININE 1.5 mg/dL (0.5-0.9)
[2018-06-12 18:36] LABS: BILIRUBIN,TOTAL 0.6 mg/dL (0.2-1.0); TOTAL PROTEIN 6.7 g/dL (6.6-8.7)
[2018-06-12] MEDS ORDERED: FENTANYL PF 100MCG/2ML VIAL IVP ONE (18:37)
[2018-06-12 18:41] LABS: ALB/GLOB RATIO 1.2 (1.1-1.8); ALBUMIN 3.7 g/dL (4.0-5.0)
[2018-06-12 18:58] LABS: URINE APPEARANCE CLEAR; URINE BILIRUBIN NEGATIVE (NEGATIVE); URINE BLOOD TRACE-I (NEGATIVE); URINE COLOR YELLOW; URINE GLUCOSE (UA) NEGATIVE (NEGATIVE); URINE KETONE NEGATIVE (NEGATIVE); URINE LEUKOCYTE ESTERASE NEGATIVE (NEGATIVE); URINE NITRITE NEGATIVE (NEGATIVE); URINE PROTEIN NEGATIVE (NEGATIVE); URINE UROBILINOGEN 0.2 E.U./dL (0.20 - 1.00)
[2018-06-12 19:10] LABS: URINE BACTERIA FEW; URINE EPITHELIAL CELLS TNTC (FEW); URINE RBC 0 - 2 (NONE SEEN); URINE WBC 0 - 2 (0-2/hpf)
--- NOTE | 2018-06-15 21:13 | CT SCAN REPORT ---
EXAM: CT SCAN ABDOMEN/PELVIS WO CONTRAST HISTORY: ABDOMINAL PAIN. TECHNIQUE: Sequential axial images were obtained from the diaphragms through the ischiorectal fossa without intravenous or oral contrast administration. FINDINGS: The visualized lung bases are normal. There is cardiomegaly. The liver appears normal. The gallbladder is surgically removed. Pancreas and spleen appear normal. The kidneys are grossly unremarkable. No obstructive uropathy. There is a right rectus abdominis muscular hematoma measuring approximately 2.6 cm in diameter and 7.7 cm in the craniocaudal dimension. Small bowel appears normal. The colon appears normal. No retroperitoneal or mesenteric lymphadenopathy. The urinary bladder appears grossly unremarkable. The osseous structures are grossly unremarkable. IMPRESSION: THERE IS A RIGHT RECTUS ABDOMINIS INTRAMUSCULAR HEMATOMA MEASURING 7.7 CM X 2.6 CM. JOB NUMBER: [id number] MTDD
== END 2018-06-12 19:15 | disposition home or self-care (01) ==
LOC: ER 17:49
DX: S30.1XXA Contusion of abdominal wall, initial encounter (principal); R05 Cough; R11.0 Nausea; M54.9 Dorsalgia, unspecified; G89.29 Other chronic pain; I10 Essential (primary) hypertension; I50.9 Heart failure, unspecified; I48.91 Unspecified atrial fibrillation; E11.9 Type 2 diabetes mellitus without complications; X50.0XXA Overexertion from strenuous movement or load, initial encounter; Z79.4 Long term (current) use of insulin; Z95.5 Presence of coronary angioplasty implant and graft; Z79.01 Long term (current) use of anticoagulants
CPT/HCPCS: 99284 ×2; 96374; 96375; 83690; 85025; 80053; 81001; 74176; J2405; J3010; J7030

== ENCOUNTER 2019-07-09 12:52 | Day surgery (SDC) | payer MEDICARE, BC ==
[2019-07-09] MEDS ORDERED: LIDOCAINE 2% MDV (20MG/ML) 20ML VIAL IV ONE (12:53)
[2019-07-09] MEDS ORDERED: PROPOFOL 10 MG/ML VIAL IV ONE (12:53)
--- NOTE | 2019-07-10 14:10 | Operative Note ---
OPERATION: ESOPHAGOGASTRODUODENOSCOPY with biopsy. PREOPERATIVE DIAGNOSIS: Dyspepsia and epigastric pain. POSTOPERATIVE DIAGNOSIS: Nonerosive linear antral gastritis and irregular Z- line, rule out short-segment Brower's. PROCEDURE: After informed consent was obtained from the patient, she was placed in the left lateral decubitus position in the endoscopy suite, sedated and monitored by the department of anesthesia. A well-lubricated [id number] gastroscope was placed in the posterior oropharynx under direct visualization and passed to the proximal esophagus. The endoscope was advanced through the proximal, mid, and distal esophagus. The GE junction was irregular. No ulcers, erosions, strictures, varices, or mass lesions were seen. The remainder of the esophagus appeared normal. The gastric body and antrum were carefully inspected revealing mild linear erythematous changes in the antrum. The pylorus, duodenal bulb, and sweep were unremarkable. J-turn views of the proximal stomach were unrevealing. The endoscope was straightened and antral biopsies were obtained. GE junction biopsies were obtained. The endoscope was removed from the patient with no new findings noted. RECOMMENDATIONS: I believe the patient would benefit from a colonoscopy. However, she had been reluctant previously. I will discuss this matter further with her and try to arrange if she is interested and accepting of the prep. As always, thank you for allowing me to participate in the healthcare of your patients. RIP
== END 2019-07-09 14:10 | disposition home or self-care (01) ==
LOC: HOP 12:52
PROVIDERS: ATTEND Internal Medicine Gastroenterology
DX: R10.13 Epigastric pain (principal); R13.10 Dysphagia, unspecified; R19.4 Change in bowel habit; K29.50 Unspecified chronic gastritis without bleeding; K31.89 Other diseases of stomach and duodenum; K21.0 Gastro-esophageal reflux disease with esophagitis; I48.91 Unspecified atrial fibrillation; R07.9 Chest pain, unspecified; E11.9 Type 2 diabetes mellitus without complications; I10 Essential (primary) hypertension; E78.00 Pure hypercholesterolemia, unspecified; R60.9 Edema, unspecified; E03.9 Hypothyroidism, unspecified; M10.9 Gout, unspecified

== ENCOUNTER 2019-07-23 11:31 | Day surgery (SDC) | payer MEDICARE, BC ==
[2019-07-23] MEDS ORDERED: LIDOCAINE 2% MDV (20MG/ML) 20ML VIAL IV ONE (11:32)
[2019-07-23] MEDS ORDERED: PROPOFOL 10 MG/ML VIAL IV ONE (11:32)
--- NOTE | 2019-07-27 08:20 | Operative Note ---
OPERATION: COLONOSCOPY. PREOPERATIVE DIAGNOSIS: Abdominal pain, change in bowel habits. POSTOPERATIVE DIAGNOSIS: Mild sigmoid diverticulosis. PROCEDURE: After informed consent was obtained from the patient, she was placed in the left lateral decubitus position in the endoscopy suite, sedated and monitored by the department of anesthesia. Digital rectal examination was unremarkable. A well-lubricated [id number] colonoscope was inserted into the rectum and advanced to the cecum. Preparation quality was good. The cecum, cecal bulb, ileocecal valve, appendiceal orifice, ascending colon, transverse colon, and descending colon were free of inflammatory changes, mass lesions, or polyps. There were a few scattered sigmoid diverticula noted. No polyps were seen. The rectum was unremarkable in forward and J-turn views. The endoscope was straightened, the rectal ampulla deflated, and the endoscope was removed. RECOMMENDATIONS: I would suggest the patient follow a high-fiber diet. She is constipated. I would suggest she use MiraLax daily. She should undergo repeat colonoscopy in 10 years should her health allow. As always, thank you for allowing me to participate in the healthcare of your patients. RIP
== END 2019-07-23 13:32 | disposition home or self-care (01) ==
LOC: HOP 11:31
PROVIDERS: ATTEND Internal Medicine Gastroenterology
DX: R10.9 Unspecified abdominal pain (principal); R19.4 Change in bowel habit; K57.30 Diverticulosis of large intestine without perforation or abscess without bleeding; E11.9 Type 2 diabetes mellitus without complications; I10 Essential (primary) hypertension; E78.00 Pure hypercholesterolemia, unspecified; I48.91 Unspecified atrial fibrillation; G62.9 Polyneuropathy, unspecified; R60.9 Edema, unspecified; M10.9 Gout, unspecified